=== PATIENT | female | born 2000 | race Caucasian/White ===

== ENCOUNTER → 2018-01-08 | Outpatient (CLI) | payer OTHER ==
[2016-10-17 11:20] VITALS: BMI 24.0
[~2018-01-08] MED LIST: ABILIF5PT PO; ACET-3017 PO; BECL8.7A2 IH; BECL8.7A6 IH; CHOL200074 PO; ETHI1TAB3 PO; FLUINH INH; FLUO-202 PO; FLUT50DI3 IH; HYDR-4309 PO; KET10 PO; LEVA0.316 IH; LEVO75TA73 PO; MIRT-17 PO; MONT10TA PO; MONT5TAB PO; MULT-1379 PO; OMEG500C7 PO; PRED-1 PO; RANI-324 PO; VENL75CA58 PO
--- NOTE | 2018-01-08 12:09 | RADIOLOGY IMAGING REPORT ---
FACILITY: [facility] PATIENT NAME: Barbara Macias : 2000 MR: [id number] V: [id number] EXAM DATE: ORDERING PHYSICIAN: TOMMY FRANCE TECHNOLOGIST: [place] [facility] [place]: Barbara Macias : 2000 Visit/Account:[id number] Date of Sevice: 01/08/2018 Exam type: CHEST PA AND LAT History: None given Comparison: December 13, 2014. Findings: The lungs are free of acute effusions, infiltrates or edema. The cardiac silhouette is normal in siz e. The trachea is in midline. IMPRESSION: 1. No acute cardiac pulmonary process is seen Report Dictated By: Deepti Mckinley MD at 01/08/2018 12:02 PM Report E-Signed By: Deepti Mckinley MD at 01/08/2018 12:03 PM WSN:[email or web address]
== END ==
LOC: RAD 11:26
PROVIDERS: ATTEND Family Medicine
DX: Z01.818 Encounter for other preprocedural examination (principal); J45.909 Unspecified asthma, uncomplicated
CPT/HCPCS: 71046

== ENCOUNTER 2018-01-22 00:31 | Day surgery (SDC) | payer OTHER ==
[2016-10-17 11:20] VITALS: Ht 165.1 cm; Wt 79.4 kg
[~2018-01-22] VITALS: Ht 165.1 cm; Wt 79.4 kg
[~2018-01-22 00:31] MED LIST changes: +ARIP10TA4 PO; +FLUO60TA PO; +GABA-549 PO; +LEVA15HF IH
[2018-01-22 08:15] VITALS: BP 118/76
[2018-01-22] MEDS ORDERED: SCOPOLAMINE 1.5 MG PATCH TD ONE (08:20)
[2018-01-22] MEDS ORDERED: fentaNYL CITR 250 MCG/5 ML AMP ONE (08:21)
[2018-01-22] MEDS ORDERED: LIDOCAINE 2% IV 100 MG/5ML SYR ONE (08:25)
[2018-01-22] MEDS ORDERED: PROPOFOL EMUL(*) 10MG/ML 20 ML 20 ML ONE (08:26)
[2018-01-22] MEDS ORDERED: MIDAZOLAM 2 MG/2 ML VIAL IVP PRN (08:35)
[2018-01-22] MEDS ORDERED: LIDOCAINE/SOD BICARB 8.4% SYR ID ONE (08:35)
[2018-01-22] MEDS ORDERED: NORMOSOL R SOLN(*) 1000 ML BAG 1,000 ML IV PRN (08:35)
[2018-01-22] MEDS ORDERED: FAMOTIDINE 20 MG TAB PO ONE (08:35)
[2018-01-22] MEDS ORDERED: ROPIVACAINE 0.2% 20 ML VIAL ONE (09:47)
[2018-01-22] MEDS ORDERED: ROCURONIUM BROM 10 MG/ML 5 ML ONE (10:00)
[2018-01-22] MEDS ORDERED: SUGAMMADEX SOD 200 MG/2 ML SDV ONE (10:15)
[2018-01-22] MEDS ORDERED: KETOROLAC 30 MG/ML VIAL ONE (10:56)
[2018-01-22] MEDS ORDERED: DEXAMETHASONE SOD 4 MG/ML VIAL ONE ×2 (10:56→11:40)
[2018-01-22] MEDS ORDERED: ONDANSETRON 4 MG/2 ML VIAL ONE (10:56)
[2018-01-22] MEDS ORDERED: fentaNYL CITR 100 MCG/2 ML AMP ONE (11:14)
[2018-01-22] MEDS ORDERED: LR(*) 1000 ML BAG 1,000 ML IV ONE (11:32)
--- NOTE | 2018-01-22 11:32 | Post Operative Note ---
Operative Note - [facility] Operative Day Date: Jan 22, 2018 Time: 11:23 Physicians Surgeon: Luiz Anesthesia: GETA Diagnosis Pre-Op Diagnosis: Endometriosis EZ Post-Op Diagnosis: same Procedure Findings: adhesions in posterior culdesac vesicular type endometriosis Procedure(s): laparoscopic lysis of adhesions laparoscopic fulguration of endometriosis Specimen Removed:(Maybe N/A): [id number] Complications: none Fluids Fluids: 900 ml Estimated Blood Loss: minimal Dictated Date OP Note Dictated: Jan 22, 2018 Time OP Note Dictated: 11:26 Copies to: NETTIE CRAWFORD MD, TRAVIS MD Jan 22, 2018 11:32
[2018-01-22] MEDS ORDERED: LOR5/325 PO (11:34)
[2018-01-22] MEDS ORDERED: APAP/HYDROCODONE 325/5 TAB PO PRN (11:35)
--- NOTE | 2018-01-22 11:36 | Short(Outpt) Discharge Summary ---
Discharge Summary Reason for Hosp/Final Diag: (1) Endometriosis, pelvic peritoneum Hospital Course & Plan: s/p fulguration and lysis of adhesions Departure Discharge to: Home, Self Care Discharge Instructions Home Meds Active Scripts Hydrocodone Bit/Acetaminophen (HYDROCODON-ACETAMINOPHEN 5-325) 1 Each Tablet, 1- 2 EACH PO Q6H Y for PAIN, #30 TAB 0 Refills Prov:EARLE DEE MD 01/22/18 Reported Medications Fluoxetine Hcl (FLUOXETINE HCL) 60 Mg Tablet, 60 MG PO QDAY 01/14/18 Levalbuterol Tartrate (XOPENEX HFA) 15 Gm Hfa.aer.ad, 15 GM IH PRN 01/14/18 Montelukast Sodium (SINGULAIR) 10 Mg Tablet, 1 TAB PO QDAY, TAB 01/14/18 Gabapentin (GABAPENTIN) 300 Mg Capsule, 300 MG PO BID, CAPSULE 01/14/18 Aripiprazole (ABILIFY) 10 Mg Tablet, 10 MG PO QDAY, TAB 01/14/18 Cholecalciferol (Vitamin D3) (VITAMIN D-3) 2,000 Unit Capsule, 1000 UNIT PO QDAY , CAPSULE 10/19/16 Beclomethasone Dipropionate 40 Mcg/Act (QVAR 40 MCG/ACT) 7.3 Gm Aer.w.adap, 7.3 GM IH BID 10/19/16 Levothyroxine Sodium (LEVOTHYROXINE SODIUM) 75 Mcg Tablet, 75 MCG PO QAM, TAB 10/19/16 Follow up Referrals: [facility] - In Two Weeks @ [facility] with Earle Dee Md Diet: Regular Activity: As Tolerated Copies to: EARLE DEE MD, TRAVIS MD Jan 22, 2018 11:36
[2018-01-22] MEDS ORDERED: APAP/HYDROCODONE 325/5 TAB ONE (11:55)
[2018-01-22 12:12] VITALS: BP 97/72
[2018-01-22 12:30] VITALS: BP 102/65
[2018-01-22 12:38] VITALS: BP 95/69
[2018-01-22 12:40] VITALS: BP 101/65
--- NOTE | 2018-01-22 21:36 | OPERATIVE REPORT 1 ---
EVENT DATE: January 22, 2018 SURGEON: Earle Dee MD ANESTHESIOLOGIST: Stephen Pina MD ANESTHESIA: General endotracheal. PREOPERATIVE DIAGNOSES 1. Endometriosis. 2. Dysmenorrhea. POSTOPERATIVE DIAGNOSES 1. Endometriosis. 2. Dysmenorrhea. 3. Pelvic adhesions. PROCEDURES PERFORMED 1. Laparoscopic lysis of adhesions. 2. Laparoscopic left ovarian cystectomy. 3. Laparoscopic fulguration of endometriosis. ESTIMATED BLOOD LOSS Minimal. FLUIDS Crystalloid 900 mL IV. FINDINGS Inspecting the pelvis, retroverted uterus, normal-appearing right ovary and tube , left ovary with simple-appearing small cyst with a serous straw-colored fluid within, posterior cul-de-sac with filmy adhesions, and a vesicular-type endometriosis. PROCEDURE IN DETAIL The patient was brought to the operating room with a working IV and placed in the dorsal supine position. She was placed under general endotracheal anesthesia by Dr. Pina and then prepped and draped in the usual sterile fashion in the lithotomy position. A weighted speculum was placed in the vagina. The cervix was grasped on the anterior lip with a single-toothed tenaculum. It was sounded to a depth of 9 cm retroverted. An IUD was in place and strings visible. The cervix was carefully dilated to size 6 Hegar dilator, and then an 8 cm APARNA uterine manipulator was selected, assembled, and passed through the cervix into the uterus. The bulb was inflated and secured. All other instruments were then removed. The IUD was not compromised during this procedure. The legs were brought back to the supine position. Gloves were changed. The bladder had been drained during the prep. The umbilicus was then infiltrated with 0.2% Naropin. A 5 mm stab incision was made. A Veress needle was passed through this incision into the abdomen while elevating the anterior abdominal wall. A pneumoperitoneum was created to internal abdominal pressure of 20 mmHg. The Veress needle was removed. The 5 mm bladeless trocar was then passed through this incision into the abdomen while stabilizing the anterior abdominal wall. The abdomen and pelvis were surveyed with the above findings noted. The patient was moved to Trendelenburg position. An additional 5 mm port was placed in the left lower quadrant under similar technique and under direct visualization. The pressure was dropped to 15 mmHg. The uterus was then elevated. The filmy adhesions in the posterior cul-de-sac were taken down with the Harmonic scalpel. Once the anatomy had been restored, fulguration of the vesicular-type endometriosis was performed in a similar location as the adhesions in the right posterior cul-de-sac. Care was taken to identify the ureter and avoid any treatment overlying the ureter or their vital structures. Upon completion, there were no visible complications. The pelvis was irrigated and suctioned dry. Interceed was placed in the posterior cul-de-sac to assist to prevent adhesions in that location again. Overall, she tolerated the procedure well. Sponge, lap, instrument, and needle counts were all correct times three. The pneumoperitoneum was released and suctioned out. All instruments were then removed. The skin incisions were repaired with 4-0 Monocryl simple subdermal and covered with Dermabond skin adhesive. She tolerated everything well. Sponge, lap, needle, and instrument counts were all correct times three. She was taken to recovery in stable condition. NAYELI
== END 2018-01-22 12:12 | disposition home or self-care (01) ==
LOC: OR 00:31
PROVIDERS: ATTEND Obstetrics & Gynecology
DX: N80.9 Endometriosis, unspecified (principal); N94.6 Dysmenorrhea, unspecified; N73.6 Female pelvic peritoneal adhesions (postinfective)
CPT/HCPCS: 36415; 58662; 84703; J1100; J1885; J2001; J2250; J2405; J2704; J2795; J3010

== ENCOUNTER 2018-05-26 19:16 | Emergency (ER) | payer OTHER ==
[2016-10-17 11:20] VITALS: Wt 79.4 kg
[~2018-05-26 19:16] MED LIST changes: +LOR5/325 PO; -RANI-324 PO; +RANI-366 PO
--- NOTE | 2018-05-26 19:19 | ER Report ---
History and Physical Time Seen By MD: 19:18 HPI/ROS CHIEF COMPLAINT: Vaginal bleeding, lower abdominal cramps HISTORY OF PRESENT ILLNESS: 17-year-old female presents with severe lower abdominal pain, cramps and vaginal bleeding. She uses the Mirena control IUD. 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 She describes having light menstrual flows for several months. Patient notes she's been having heavy vaginal bleeding, passing some clots and some bright red bleeding with just current menstrual period. Patient denies risk of . Patient denies dysuria or hematuria. Patient denies fevers. REVIEW OF SYSTEMS: Respiratory: No cough, no dyspnea. Cardiovascular: No chest pain, no palpitations. Gastrointestinal: As above Musculoskeletal: No back pain. Allergies: Coded Allergies: albuterol (Verified Allergy, Mild, MENTAL STATUS CHANGES, 01/14/18) PT REPORTS GETS LIGHTHEADED AND "FOGGY IN THE BRAIN" Home Meds Active Scripts Hydrocodone Bit/Acetaminophen (NORCO 5-325 TABLET) 1 Each Tablet, 1 EACH PO Q4H Y for PAIN, #12 TAB Prov:HIGINIO BARBER DO 05/26/18 Reported Medications Norethindrone Acetate (NORETHINDRONE ACETATE) 5 Mg Tab, 5 MG FT, TAB 05/26/18 Fluoxetine Hcl (FLUOXETINE HCL) 60 Mg Tablet, 60 MG PO QDAY 01/14/18 Levalbuterol Tartrate (XOPENEX HFA) 15 Gm Hfa.aer.ad, 15 GM IH PRN 01/14/18 Aripiprazole (ABILIFY) 10 Mg Tablet, 10 MG PO QDAY, TAB 01/14/18 Cholecalciferol (Vitamin D3) (VITAMIN D-3) 2,000 Unit Capsule, 1000 UNIT PO QDAY , CAPSULE 10/19/16 Beclomethasone Dipropionate 40 Mcg/Act (QVAR 40 MCG/ACT) 7.3 Gm Aer.w.adap, 7.3 GM IH BID 10/19/16 Levothyroxine Sodium (LEVOTHYROXINE SODIUM) 75 Mcg Tablet, 75 MCG PO QAM, TAB 10/19/16 Discontinued Reported Medications Montelukast Sodium (SINGULAIR) 10 Mg Tablet, 1 TAB PO QDAY, TAB 01/14/18 Gabapentin (GABAPENTIN) 300 Mg Capsule, 300 MG PO BID, CAPSULE 01/14/18 Discontinued Scripts Hydrocodone Bit/Acetaminophen (HYDROCODON-ACETAMINOPHEN 5-325) 1 Each Tablet, 1- 2 EACH PO Q6H Y for PAIN, #30 TAB 0 Refills Prov:NETTIE DEE MD 01/22/18 Reviewed Nurses Notes: Yes Old Medical Records Reviewed: Yes Hx Smoking: No Smoking Status: Never Smoker Exposure to Second Hand Smoke?: No Hx Alcohol Use: Yes Constitutional Vital Sign - Last 24 Hours 05/26/18 05/26/18 05/26/18 05/26/18 19:22 19:26 19:31 19:36 Temp 98.3 Pulse 85 83 87 Resp 16 B/P (MAP) 125/71 135/71 (92) 105/77 (86) Pulse Ox 94 96 94 O2 Delivery Room Air 05/26/18 05/26/18 05/26/18 05/26/18 19:51 20:06 20:21 20:26 Pulse 78 89 75 80 Pulse Ox 94 94 96 98 Physical Exam Vital signs stable, afebrile, pulse ox normal General Appearance: The patient is alert, has no immediate need for airway protection and no current signs of toxicity. Eyes: Pupils equal and round no injection. Respiratory: Chest is non tender, lungs are clear to auscultation. Cardiac: regular rate and rhythm Gastrointestinal: Abdomen is soft, mild suprapubic tenderness, no rebound or guarding, no masses, bowel sounds normal. Musculoskeletal: Neck: Neck is supple and non tender. Extremities have full range of motion and are non tender. Skin: No rashes or lesions. DIFFERENTIAL DIAGNOSIS: After history and physical exam differential diagnosis was considered for vaginal bleeding including but not limited to ectopic , menses, miscarriage, and dysfunctional uterine bleeding. Medical Decision Making Data Points Result Diagram: 05/26/18194505/26/181945 Laboratory Hematology Test 05/26/18 19:46 05/26/18 19:51 Red Blood Count 4.73 M/uL (4.17-5.56) Mean Corpuscular Volume 92.6 fL (80.0-96.0) Mean Corpuscular Hemoglobin 32.0 pg (26.0-33.0) Mean Corpuscular Hemoglobin Concent 34.5 g/dL (32.0-36.0) Red Cell Distribution Width 13.4 % (11.5-14.5) Mean Platelet Volume 9.0 fL (7.2-11.1) Neutrophils (%) (Auto) 63.2 % (39.4-72.5) Lymphocytes (%) (Auto) 26.9 % (17.6-49.6) Monocytes (%) (Auto) 7.2 % (4.1-12.4) Eosinophils (%) (Auto) 1.9 % (0.4-6.7) Basophils (%) (Auto) 0.8 % (0.3-1.4) Nucleated RBC Relative Count (auto) 0.0 /100WBC Neutrophils # (Auto) 5.6 K/uL (2.0-7.4) Lymphocytes # (Auto) 2.4 K/uL (1.3-3.6) Monocytes # (Auto) 0.6 K/uL (0.3-1.0) Eosinophils # (Auto) 0.2 K/uL (0.0-0.5) Basophils # (Auto) 0.1 K/uL (0.0-0.1) Nucleated RBC Absolute Count (auto) 0.00 K/uL Prothrombin Time 13.6 seconds (12.0-14.4) Prothromb Time International Ratio 1.04 Activated Partial Thromboplast Time 30 seconds (23-35) Sodium Level 139 mmol/L (137-145) Potassium Level 4.5 mmol/L (3.5-5.0) Chloride Level 105 mmol/L (98-107) Carbon Dioxide Level 24 mmol/L (22-31) Blood Urea Nitrogen 12 mg/dl (7-18) Creatinine 0.90 mg/dl (0.52-1.04) Glomerular Filtration Rate Calc > 60.0 Random Glucose 91 mg/dl (75-110) Calcium Level 9.6 mg/dl (8.4-10.2) Total Bilirubin 0.5 mg/dl (0.2-1.3) Aspartate Amino Transf (AST/SGOT) 20 U/L (0-35) Alanine Aminotransferase (ALT/SGPT) 27 U/L (0-56) Alkaline Phosphatase 76 U/L (0-126) Total Protein 7.3 g/dl (6.3-8.2) Albumin 4.3 g/dl (3.5-5.0) Human Chorionic Gonadotropin, Qual Negative (NEGATIVE) Urine Color Colorless Urine Clarity Clear Urine pH 7.0 pH (4.8-9.5) Urine Specific [place] 1.005 Urine Protein Negative mg/dL (NEGATIVE) Urine Glucose (UA) Negative mg/dL (NEGATIVE) Urine Ketones Negative mg/dL (NEGATIVE) Urine Blood Small (NEGATIVE) Urine Nitrite Negative (NEGATIVE) Urine Bilirubin Negative (NEGATIVE) Urine Urobilinogen Negative mg/dL (0.2-1.9) Urine Leukocyte Esterase Negative (NEGATIVE) Urine RBC <1 /HPF (0-2/HPF) Urine WBC None /HPF (0-5/HPF) Urine Squamous Epithelial Cells None /LPF (</=FEW) Urine Bacteria Negative /HPF (NONE-FEW) Urine Mucus None /HPF (NONE-FEW) Chemistry Test 05/26/18 19:46 05/26/18 19:51 White Blood Count 8.9 k/uL (4.5-11.0) Red Blood Count 4.73 M/uL (4.17-5.56) Hemoglobin 15.1 g/dL (12.0-16.0) Hematocrit 43.8 % (34.0-47.0) Mean Corpuscular Volume 92.6 fL (80.0-96.0) Mean Corpuscular Hemoglobin 32.0 pg (26.0-33.0) Mean Corpuscular Hemoglobin Concent 34.5 g/dL (32.0-36.0) Red Cell Distribution Width 13.4 % (11.5-14.5) Platelet Count 299 K/uL (150-450) Mean Platelet Volume 9.0 fL (7.2-11.1) Neutrophils (%) (Auto) 63.2 % (39.4-72.5) Lymphocytes (%) (Auto) 26.9 % (17.6-49.6) Monocytes (%) (Auto) 7.2 % (4.1-12.4) Eosinophils (%) (Auto) 1.9 % (0.4-6.7) Basophils (%) (Auto) 0.8 % (0.3-1.4) Nucleated RBC Relative Count (auto) 0.0 /100WBC Neutrophils # (Auto) 5.6 K/uL (2.0-7.4) Lymphocytes # (Auto) 2.4 K/uL (1.3-3.6) Monocytes # (Auto) 0.6 K/uL (0.3-1.0) Eosinophils # (Auto) 0.2 K/uL (0.0-0.5) Basophils # (Auto) 0.1 K/uL (0.0-0.1) Nucleated RBC Absolute Count (auto) 0.00 K/uL Prothrombin Time 13.6 seconds (12.0-14.4) Prothromb Time International Ratio 1.04 Activated Partial Thromboplast Time 30 seconds (23-35) Glomerular Filtration Rate Calc > 60.0 Calcium Level 9.6 mg/dl (8.4-10.2) Total Bilirubin 0.5 mg/dl (0.2-1.3) Aspartate Amino Transf (AST/SGOT) 20 U/L (0-35) Alanine Aminotransferase (ALT/SGPT) 27 U/L (0-56) Alkaline Phosphatase 76 U/L (0-126) Total Protein 7.3 g/dl (6.3-8.2) Albumin 4.3 g/dl (3.5-5.0) Human Chorionic Gonadotropin, Qual Negative (NEGATIVE) Urine Color Colorless Urine Clarity Clear Urine pH 7.0 pH (4.8-9.5) Urine Specific [place] 1.005 Urine Protein Negative mg/dL (NEGATIVE) Urine Glucose (UA) Negative mg/dL (NEGATIVE) Urine Ketones Negative mg/dL (NEGATIVE) Urine Blood Small (NEGATIVE) Urine Nitrite Negative (NEGATIVE) Urine Bilirubin Negative (NEGATIVE) Urine Urobilinogen Negative mg/dL (0.2-1.9) Urine Leukocyte Esterase Negative (NEGATIVE) Urine RBC <1 /HPF (0-2/HPF) Urine WBC None /HPF (0-5/HPF) Urine Squamous Epithelial Cells None /LPF (</=FEW) Urine Bacteria Negative /HPF (NONE-FEW) Urine Mucus None /HPF (NONE-FEW) Coagulation Test 05/26/18 19:46 Prothrombin Time 13.6 seconds Prothromb Time International Ratio 1.04 Activated Partial Thromboplast Time 30 seconds Urinalysis Test 05/26/18 19:51 Urine Color Colorless Urine Clarity Clear Urine pH 7.0 pH (4.8-9.5) Urine Specific [place] 1.005 Urine Protein Negative mg/dL (NEGATIVE) Urine Glucose (UA) Negative mg/dL (NEGATIVE) Urine Ketones Negative mg/dL (NEGATIVE) Urine Blood Small (NEGATIVE) Urine Nitrite Negative (NEGATIVE) Urine Bilirubin Negative (NEGATIVE) Urine Urobilinogen Negative mg/dL (0.2-1.9) Urine Leukocyte Esterase Negative (NEGATIVE) Urine RBC <1 /HPF (0-2/HPF) Urine WBC None /HPF (0-5/HPF) Urine Squamous Epithelial Cells None /LPF (</=FEW) Urine Bacteria Negative /HPF (NONE-FEW) Urine Mucus None /HPF (NONE-FEW) ED Course/Re-evaluation ED Course Patient was admitted to an examination room. H&P was done. The differential diagnoses was considered. On clinical examination. Patient has benign nonsurgical abdomen. She's been having heavy vaginal bleeding. She's got a Mirena IUD. Which is likely giving her heavy menstrual flow / dysfunctional vaginal bleeding. Diagnostic evaluation shows a stable H&H. Normal coagulation values. Serum test is negative. His medicated for pain with ibuprofen and [place]. Patient's discharged home and advised to follow-up with her MEDICAL CENTER REPRESENTATIVE for hormonal manipulation if indicated. She's given a prescription for [place] for temporary pain relief. Decision to Disposition Date: May 26, 2018 Decision to Disposition Time: 20:32 Depart Departure Latest Vital Signs Vital Signs Date Time Temp Pulse Resp B/P (MAP) Pulse Ox O2 Delivery O2 Flow Rate FiO2 05/26/18 20:26 80 98 05/26/18 19:31 105/77 (86) 05/26/18 19:22 98.3 16 Room Air Impression: Primary Impression: Dysfunctional uterine bleeding Additional Impressions: Abdominal cramping, bilateral lower quadrant History of endometriosis Status post laparoscopic surgery Condition: Improved Disposition: HOME OR SELF-CARE New Scripts Hydrocodone Bit/Acetaminophen (NORCO 5-325 TABLET) 1 Each Tablet 1 EACH PO Q4H Y for PAIN, #12 TAB Prov: HIGINIO BARBER DO 05/26/18 Patient Instructions: Dysfunctional Uterine Bleeding (ED) Additional Instructions: Take ibuprofen 200 mg 3-4 tablets 3 times a day with food Apply heating pad to your lower abdomen to provide some comfort Follow-up with Dr. Dee for further treatment of your dysfunctional bleeding Problem Qualifiers HIGINIO BARBER DO May 26, 2018 19:19
[2018-05-26] MEDS ORDERED: NOR5 FT (19:30)
[2018-05-26 19:31] VITALS: BP 105/77
[2018-05-26 19:55] LABS: PLATELET COUNT, AUTOMATED 299 K/uL (150-450)
[2018-05-26] MEDS ORDERED: APAP/HYDROCODONE 325/5 TAB PO ONE (19:55)
[2018-05-26] MEDS ORDERED: IBUPROFEN 600 MG TAB PO ONE (19:55)
[2018-05-26 20:04] LABS: INR 1.04
[2018-05-26] MEDS ORDERED: HYDR-4309 PO (20:34)
[2018-05-26] MEDS ORDERED: ACET/HYDROC 5/325MG TH ER ONLY 2 TAB/BOTTLE PO ONE (20:35)
== END 2018-05-26 20:40 | disposition home or self-care (01) ==
LOC: ER 19:47
DX: N93.8 Other specified abnormal uterine and vaginal bleeding (principal); R10.31 Right lower quadrant pain; R10.32 Left lower quadrant pain
CPT/HCPCS: 81001; 82040; 82247; 82310; 82374; 82435; 82565; 82947; 84075; 84132; 84155; 84295; 84450; 84460; 84520; 84703; 85025; 85610; 85730; 99283

== ENCOUNTER → 2018-07-31 | Outpatient (CLI) | payer OTHER ==
[2016-10-17 11:20] VITALS: BMI 24.0
[~2018-07-31] MED LIST changes: +BARIUM SULFATE 176 GM BTL PO ONE; +BARIUM SULFATE 340 GM POWD ONE; +NOR5 FT
--- NOTE | 2018-07-31 11:34 | RADIOLOGY IMAGING REPORT ---
FACILITY: [facility] - [place] PATIENT NAME: Barbara Macias : 2000 MR: [id number] V: [id number] EXAM DATE: ORDERING PHYSICIAN: TOMMY FRANCE TECHNOLOGIST: Location: [facility] - [place] Patient: Barbara Macias : 2000 Visit/Account:[id number] Date of Sevice: 07/31/2018 Exam type: UPPER GI SERIES W/O AIR History: GERD Comparison: Upper GI series September 10, 2013. Findings: Double contrast upper GI series was performed with thick and thin barium and air contrast. Again not ed is a tiny hiatal hernia although there is now a large amount of gastroesophageal reflux. No evide nce of mucosal erosion or esophageal narrowing or spasm is noted in the second portion of the duodenu m no abnormality of the stomach was seen. The fluoroscopy dose area product was 807.14 micro-Glover pe r meter squared IMPRESSION: 1. Tiny hiatal hernia with a large amount of gastroesophageal reflux although no evidence of esophag eal stricture or mucosal erosion There is spasm noted in the second portion the duodenum which could be related to pancreatic patholog y if this is of strong clinical concern CT or MR recommended Report Dictated By: Deepti Mckinley MD at 07/31/2018 11:26 AM Report E-Signed By: Deepti Mckinley MD at 07/31/2018 11:29 AM WSN:[email or web address]
== END ==
LOC: RAD 00:42
PROVIDERS: ATTEND Family Medicine
DX: K21.9 Gastro-esophageal reflux disease without esophagitis (principal)
CPT/HCPCS: 74240

== ENCOUNTER → 2018-08-22 | Outpatient (CLI) | payer OTHER ==
[2016-10-17 11:20] VITALS: BMI 24.0
[~2018-08-22] MED LIST changes: -BARIUM SULFATE 176 GM BTL PO ONE; -BARIUM SULFATE 340 GM POWD ONE
== END ==
LOC: CT 04:05
PROVIDERS: ATTEND Internal Medicine
DX: Z02.9 Encounter for administrative examinations, unspecified (principal)

== ENCOUNTER → 2018-08-29 | Outpatient (CLI) | payer OTHER ==
[2016-10-17 11:20] VITALS: BMI 24.0
[~2018-08-29] MED LIST changes: -HYDR-4309 PO; +HYDR-653 PO
--- NOTE | 2018-08-29 12:53 | RADIOLOGY IMAGING REPORT ---
FACILITY: [facility] PATIENT NAME: Barbara Macias : 2000 MR: [id number] V: [id number] EXAM DATE: ORDERING PHYSICIAN: TOMMY FRANCE TECHNOLOGIST: [place] [facility] [place] Mac[place] : 2000 Visit/Account:[id number] Date of Sevice: 08/29/2018 2 VIEWS CHEST INDICATION: Asthma, cough, shortness of breath COMPARISON: 01/08/2018. FINDINGS: Heart size within normal limits. There is no focal infiltrate or lobar consolidation. No visualized bronchial wall thickening. There is no pneumothorax or pleural effusion. IMPRESSION: 1. No acute cardiopulmonary process. Report Dictated By: Geoffrey Nicholson MD at 08/29/2018 12:49 PM Report E-Signed By: Geoffrey Nicholson MD at 08/29/2018 12:50 PM WSN:[email or web address]
== END ==
LOC: RAD 11:52
PROVIDERS: ATTEND Family Medicine
DX: R05 Cough (principal); J45.909 Unspecified asthma, uncomplicated
CPT/HCPCS: 71046

== ENCOUNTER → 2018-09-02 | Outpatient (CLI) | payer OTHER ==
[2016-10-17 11:20] VITALS: BMI 24.0
--- NOTE | 2018-09-02 09:10 | RADIOLOGY IMAGING REPORT ---
FACILITY: [facility] - [place] PATIENT NAME: Barbara Macias : 2000 MR: [id number] V: [id number] EXAM DATE: ORDERING PHYSICIAN: HERMILA NICHOLS TECHNOLOGIST: Location: [facility] Patient: Barbara Macias : 2000 Visit/Account:[id number] Date of Sevice: 09/02/2018 ABDOMEN COMPLETE HISTORY: Abdominal pain, duodenal spasm on prior upper GI COMPARISON: Upper GI 07/31/2018, ultrasound 09/10/2013 TECHNIQUE: Glover scale, color and Duplex imaging of the abdomen was performed. FINDINGS: Gallbladder: Absent. Common duct: Normal, 3 mm diameter. Liver: The liver measures 14.3 cm. Normal in size and echotexture. No focal liver lesions are see n. Main portal vein is patent with hepatopedal flow. Liver surface is smooth. Pancreas: Partially obscured by bowel, visualized aspects unremarkable. Spleen: The spleen measures 8.9 cm and is normal in size and echotexture. Kidneys: The right kidney length measures 10.4 cm. The left kidney length measures 10.8 cm. Both k idneys are normal in size and echotexture. Upper abdominal aorta and IVC: Patent. Ascites: None visualized. IMPRESSION: 1. The gallbladder is absent. Otherwise unremarkable abdominal ultrasound. Report Dictated By: Guido Davis MD at 09/02/2018 9:01 AM Report E-Signed By: Guido Davis MD at 09/02/2018 9:07 AM WSN:[email or web address]
== END ==
LOC: US 00:13
PROVIDERS: ATTEND Internal Medicine
DX: Z90.49 Acquired absence of other specified parts of digestive tract (principal)
CPT/HCPCS: 76700